=== PATIENT | female | born 1955 | race Caucasian/White ===

== ENCOUNTER 2018-02-06 06:34 | Day surgery (SDC) | payer OTHER ==
[~2018-02-06 06:34] MED LIST: ASA-EC81 MG PO; MEDROLPACK PO; PAXIL20 MG PO; TRAM1TAB98 PO
[2018-02-06] MEDS ORDERED: ULTRACET PO (11:45)
[2018-02-06] MEDS ORDERED: CIPRO500 MG PO (11:46)
== END 2018-02-06 17:35 | disposition home or self-care (01) ==
LOC: CIR.AMB 06:34
DX: N20.1 Calculus of ureter (principal)

== ENCOUNTER → 2021-08-11 | Outpatient (CLI) | payer OTHER ==
[~2021-08-11] MED LIST changes: +CIPRO500 MG PO; +ULTRACET PO
== END | disposition home or self-care (01) ==
LOC: SONOGRAMA 12:38 → MAMO-SONO 13:15
PROVIDERS: ATTEND Surgery
DX: E04.2 Nontoxic multinodular goiter (principal)

== ENCOUNTER 2021-09-07 08:00 | Outpatient (CLI) | payer OTHER ==
[2021-09-08] MEDS ORDERED: CRESTOR5 MG PO (10:43)
[2021-09-08] MEDS ORDERED: AVALIDE 300-121 EACH PO (10:43)
[2021-09-08] MEDS ORDERED: LOVAZA1 GM PO (10:44)
[2021-09-08] MEDS ORDERED: GLUCOTROL XL5 MG PO (10:44)
[2021-09-08] MEDS ORDERED: SKELAXIN800 MG PO (10:45)
[2021-09-08] MEDS ORDERED: MULTIPLE VITAM1 EAC2 PO (10:45)
[2021-09-29] MEDS ORDERED: EZALLOR SPRINKLE5 MG (08:11)
[2021-09-29] MEDS ORDERED: LOVAZA1 GM PO (08:11)
[2021-09-29] MEDS ORDERED: AVALIDE 300-121 EACH (08:11)
[2021-09-29] MEDS ORDERED: MULTI-VITAMIN1 EACH PO (08:12)
[2021-09-29] MEDS ORDERED: SKELAXIN800 MG (08:12)
[2021-09-29] MEDS ORDERED: GLUCOTROL XL5 MG PO (08:12)
[2021-09-29] MEDS ORDERED: PAXIL20 MG PO (08:12)
== END 2021-09-07 08:13 | disposition home or self-care (01) ==
LOC: LAB 08:00 → EDSTATUS 09-08 08:15 → CIR.AMB 09-13 08:15
PROVIDERS: ATTEND Surgery
DX: C73 Malignant neoplasm of thyroid gland (principal); Z03.818 Encounter for observation for suspected exposure to other biological agents ruled out; I10 Essential (primary) hypertension

== ENCOUNTER 2021-10-06 05:30 | Inpatient (IN) | payer OTHER ==
[~2021-10-06 05:30] MED LIST changes: +AVALIDE 300-121 EACH; +AVALIDE 300-121 EACH PO; +CRESTOR5 MG PO; +EZALLOR SPRINKLE5 MG; +GLUCOTROL XL5 MG PO; +LOVAZA1 GM PO; +MULTI-VITAMIN1 EACH PO; +MULTIPLE VITAM1 EAC2 PO; +SKELAXIN800 MG; +SKELAXIN800 MG PO
[2021-10-07] MEDS ORDERED: SYNTHROID112 MCG PO (08:51)
== END 2021-10-07 11:26 | disposition home or self-care (01) | DRG 627 ==
LOC: CIR.AMB 05:30 → SURH 09:49 → O/R 09:49 → SURH 10:01 → CIR.AMB 13:34 → SURH 10-07 11:26
PROVIDERS: ADMIT Surgery; ATTEND Surgery
PROC: 07T20ZZ Resection of Left Neck Lymphatic, Open Approach (ICD-10-PCS; 2021-10-06)
PROC: 07T10ZZ Resection of Right Neck Lymphatic, Open Approach (ICD-10-PCS; 2021-10-06)
PROC: 0GTJ0ZZ Resection of Thyroid Gland Isthmus, Open Approach (ICD-10-PCS; principal; 2021-10-06 09:15)
DX: C73 Malignant neoplasm of thyroid gland (principal); Z20.822 Contact with and (suspected) exposure to COVID-19